=== PATIENT | male | born 1990 | race Caucasian/White ===

== ENCOUNTER 2023-05-26 10:16 | Inpatient (IN) | payer OTHER ==
[2023-05-26] MEDS ORDERED: ACETAMINOPHEN 1000 MG/100 ML BAG IVPB ONE (10:22)
[2023-05-26] MEDS ORDERED: KETOROLAC TROMETHAMINE 15 MG/ML VIAL IVPUSH ONE (10:23)
[2023-05-26 10:45] VITALS: BMI 33.3
[2023-05-26 11:09] LABS: BASO % 0.2 % (0-2.0); EOS % 0.3 % (0-4.5); EPI CELLS 8 /uL (0-25.1); HEMATOCRIT 45.2 % (35.4-49); HEMOGLOBIN 15.2 GM/dL (11.7-16.9); HYALINE CASTS 1 /uL (0-3.1); LYMPH % 13.2 % (8-40); MCHC 33.6 g/dl (32.0-35.9); MEAN CELL VOLUME 83.3 fl (80-96); MEAN PLT VOLUME 8.5 fl (7.5-11.1); MONO % 3.2 % (3.8-10.2); NEUT % 83.1 % (42.8-82.8); PLATELET COUNT 262 10^3/uL (134-434); RBC 5.43 M/mm3 (4.00-5.60); RDW 13.7 % (11.9-15.9); URINE APPEARANCE CLEAR; URINE BACTERIA 27 /uL (0-1359); URINE BILIRUBIN NEGATIVE (NEGATIVE); URINE COLOR YELLOW; URINE GLUCOSE (UA) NEGATIVE (NEGATIVE); URINE KETONE NEGATIVE (NEGATIVE); URINE LEUK ESTERASE TRACE (NEGATIVE); URINE NITRITE NEGATIVE (NEGATIVE); URINE PROTEIN TRACE (NEGATIVE); URINE RBC 1076 /uL (0-23.9); URINE UROBILINOGEN 0.2 mg/dL (0.2-1.0); URINE WBC 74 /uL (0-25.8)
[2023-05-26 11:40] LABS: CHLORIDE 109 mmol/L (98-107); SODIUM 136 mmol/L (136-145)
[2023-05-26 11:43] LABS: CALCIUM 8.8 mg/dL (8.5-10.1); CO2 21 mmol/L (21-32); GLUCOSE,RANDOM 128 mg/dL (74-106)
[2023-05-26 11:44] LABS: BLOOD UREA NITROGEN 14.2 mg/dL (7-18)
[2023-05-26 11:46] LABS: SGPT/ALT 51 U/L (13-61)
[2023-05-26 11:47] LABS: CREATININE 1.1 mg/dL (0.55-1.3); SGOT/AST 51 U/L (15-37)
[2023-05-26 11:48] LABS: BILIRUBIN,TOTAL 0.4 mg/dL (0.2-1); TOT PROT 7.7 g/dl (6.4-8.2)
[2023-05-26 11:49] LABS: ALK PHOS 104 U/L (45-117); ANION GAP 5 MMOL/L (8-16); POTASSIUM 6.8 mmol/L (3.5-5.1)
[2023-05-26 14:56] LABS: POTASSIUM 4.5 mmol/L (3.5-5.1)
[2023-05-26 14:58] LABS: BLOOD UREA NITROGEN 12.7 mg/dL (7-18); CALCIUM 9.1 mg/dL (8.5-10.1)
[2023-05-26 15:02] LABS: CREATININE 0.9 mg/dL (0.55-1.3)
[2023-05-26] MEDS ORDERED: KETOROLAC TROMETHAMINE 15 MG/ML VIAL IVPUSH PRN (18:15)
[2023-05-26] MEDS ORDERED: TAMSULOSIN HCL 0.4 MG CAP PO ONE (18:16)
[2023-05-26] MEDS ORDERED: ACETAMINOPHEN 1000 MG/100 ML BAG IVPB PRN (18:16)
[2023-05-26] MEDS ORDERED: TAMSULOSIN HCL 0.4 MG CAP ONE (18:38)
[2023-05-26] MEDS ORDERED: TRIMETHOBENZAMIDE HCL 200MG/2ML INJ IM PRN (18:42)
[2023-05-26] MEDS: LACTATED RINGERS SOLUTION 1,000 ML/1,000 ML INFUS.BAG IV SCH (18:54)
[2023-05-27] MEDS: LACTATED RINGERS SOLUTION 1,000 ML/1,000 ML INFUS.BAG IV SCH (07:58)
[2023-05-27 10:38] LABS: INR 1.11 (0.83-1.09); PROTHROMBIN TIME (PATIENT) 12.9 SEC (9.7-13.0)
[2023-05-27 10:41] LABS: BASO % 0.4 % (0-2.0); EOS % 1.9 % (0-4.5); HEMATOCRIT 38.4 % (35.4-49); HEMOGLOBIN 13.4 GM/dL (11.7-16.9); MCH 28.4 pg (25.7-33.7); MCHC 34.9 g/dl (32.0-35.9); MEAN CELL VOLUME 81.5 fl (80-96); MEAN PLT VOLUME 8.5 fl (7.5-11.1); NEUT % 47.7 % (42.8-82.8); PLATELET COUNT 225 10^3/uL (134-434); RBC 4.72 M/mm3 (4.00-5.60); RDW 13.7 % (11.9-15.9); WHITE BLOOD COUNT 5.8 K/mm3 (4.0-10.0)
[2023-05-27 10:41] LABS: ACTIVATED PTT 30.4 SECONDS (25.2-36.5)
[2023-05-27 11:28] LABS: ALBUMIN 3.3 g/dl (3.4-5.0); BLOOD UREA NITROGEN 14.7 mg/dL (7-18); CALCIUM 8.6 mg/dL (8.5-10.1); MAGNESIUM 2.1 mg/dL (1.8-2.4)
[2023-05-27 11:30] LABS: POTASSIUM 3.9 mmol/L (3.5-5.1)
[2023-05-27 11:32] LABS: CREATININE 0.8 mg/dL (0.55-1.3); PHOSPHOROUS 3.1 mg/dL (2.5-4.9)
[2023-05-27 11:33] LABS: BILIRUBIN,TOTAL 0.4 mg/dL (0.2-1); TOT PROT 6.2 g/dl (6.4-8.2)
[2023-05-28] MEDS ORDERED: GENTAMICIN SO4 80 MG/2 ML VIAL IVPB ONE (07:38)
[2023-05-28] MEDS ORDERED: MIDAZOLAM HCL 2 MG/2 ML SINGLE DOSE VIAL ONE (07:40)
[2023-05-28] MEDS ORDERED: ACETAMINOPHEN INJECTION 100 ML IVPB ONE (07:40)
[2023-05-28] MEDS ORDERED: FENTANYL CITRATE/PF 50 MCG/ML VIAL ONE (07:40)
[2023-05-28] MEDS ORDERED: ceFAZolin SODIUM 1 GM VIAL IVPB ONE ×2 (07:41→07:50)
[2023-05-28] MEDS ORDERED: PROPOFOL 20 ML ONE (07:45)
[2023-05-28] MEDS ORDERED: IOHEXOL 300 MG/ML INFUS..BTL IV ONE (07:50)
[2023-05-28] MEDS ORDERED: GENTAMICIN SO4 80 MG/2 ML VIAL ONE (07:51)
[2023-05-28] MEDS ORDERED: LACTATED RINGERS SOLUTION 1,000 ML IV SCH (08:30)
[2023-05-28] MEDS ORDERED: TRIMETHOBENZAMIDE HCL 200MG/2ML INJ IM PRN (08:35)
[2023-05-28 11:04] VITALS: RESP 18
[2023-05-28 13:09] LABS: POTASSIUM 3.7 mmol/L (3.5-5.1)
[2023-05-28 13:10] LABS: CALCIUM 8.7 mg/dL (8.5-10.1)
[2023-05-28 13:11] LABS: BLOOD UREA NITROGEN 12.6 mg/dL (7-18); MAGNESIUM 1.7 mg/dL (1.8-2.4)
[2023-05-28 13:14] LABS: CREATININE 0.8 mg/dL (0.55-1.3)
[2023-05-28 14:01] VITALS: BP 146/84; PULSE 59; TEMP 98.2
== END 2023-05-28 15:51 | disposition home or self-care (01) | DRG 465 ==
LOC: JER 10:16 → MERGE 10:16 → UNDOADMOB 18:08 → JERBED 18:08 → INTOOBSV 18:08 → JERBED 18:12 → J6S 20:28 → OBSVTOIN 05-27 11:47
PROVIDERS: ADMIT Internal Medicine; ATTEND Internal Medicine
PROC: 0T778DZ Dilation of Left Ureter with Intraluminal Device, Via Natural or Artificial Opening Endoscopic (ICD-10-PCS; principal; 2023-05-28 07:30)
PROC: BT14ZZZ Fluoroscopy of Kidneys, Ureters and Bladder (ICD-10-PCS; 2023-05-28 07:30)
DX: N13.2 Hydronephrosis with renal and ureteral calculous obstruction (principal); F17.210 Nicotine dependence, cigarettes, uncomplicated; R31.9 Hematuria, unspecified; N50.819 Testicular pain, unspecified; R33.9 Retention of urine, unspecified
CPT/HCPCS: 36415; 74176-TC; 76000-TC-FY; 76870-TC; 80048; 80053; 81003; 83735; 84100; 85025; 85610; 85730; 86850; 86900; 86901; 87086; 93005; 93010; 94760; 99285-25; C1758; C2617; G0378

== ENCOUNTER 2023-06-28 07:00 | Observation (INO) | payer OTHER ==
[2023-06-28 07:12] VITALS: BMI 30.7
[2023-06-28 09:52] LABS: BASO % 0.5 % (0-2.0); EOS % 7.8 % (0-4.5); HEMATOCRIT 39.5 % (35.4-49); HEMOGLOBIN 13.3 GM/dL (11.7-16.9); LYMPH % 32.7 % (8-40); MCH 27.4 pg (25.7-33.7); MCHC 33.8 g/dl (32.0-35.9); MEAN CELL VOLUME 81.3 fl (80-96); MEAN PLT VOLUME 8.3 fl (7.5-11.1); MONO % 10.1 % (3.8-10.2); NEUT % 48.9 % (42.8-82.8); PLATELET COUNT 254 10^3/uL (134-434); RBC 4.86 M/mm3 (4.00-5.60); WHITE BLOOD COUNT 6.6 K/mm3 (4.0-10.0)
[2023-06-28 09:58] LABS: INR 1.06 (0.83-1.09); PROTHROMBIN TIME (PATIENT) 12.3 SEC (9.7-13.0)
[2023-06-28 10:01] LABS: ACTIVATED PTT 32.5 SECONDS (25.2-36.5)
[2023-06-28 10:05] VITALS: RESP 16
[2023-06-28 10:27] LABS: ALBUMIN 3.8 g/dl (3.4-5.0); CALCIUM 8.5 mg/dL (8.5-10.1)
[2023-06-28 10:28] LABS: BLOOD UREA NITROGEN 16.1 mg/dL (7-18)
[2023-06-28 10:30] LABS: CREATININE 0.8 mg/dL (0.55-1.3)
[2023-06-28 10:32] LABS: BILIRUBIN,TOTAL 0.4 mg/dL (0.2-1); TOT PROT 6.8 g/dl (6.4-8.2)
[2023-06-28] MEDS ORDERED: ACETAMINOPHEN 1000 MG/100 ML BAG IVPB PRN (10:32)
[2023-06-28] MEDS ORDERED: FENTANYL CITRATE/PF 50 MCG/ML VIAL ONE ×2 (12:14→12:28)
[2023-06-28] MEDS ORDERED: MIDAZOLAM HCL 2 MG/2 ML SINGLE DOSE VIAL ONE (12:14)
[2023-06-28 15:16] VITALS: BP 131/85; PULSE 65; TEMP 97.5
[2023-06-28] MEDS ORDERED: MELATONIN 1 MG TABLET PO SCH (22:00)
[2023-06-29] MEDS ORDERED: ENOXAPARIN NA (PORCINE) 40 MG/0.4 ML DISP.SYRIN SQ SCH (10:00)
[2023-06-29] MEDS ORDERED: NICOTINE 14 MG/24 HOURS TOPICAL PATCH TD SCH (10:00)
== END 2023-06-28 15:10 | disposition home or self-care (01) ==
LOC: JER 07:00 → JERBED 07:39
PROVIDERS: ADMIT Internal Medicine; ATTEND Internal Medicine
PROC: 0T777DZ Dilation of Left Ureter with Intraluminal Device, Via Natural or Artificial Opening (ICD-10-PCS; 2023-06-28)
PROC: 0TF Urinary System, Fragmentation (ICD-10-PCS; principal; 2023-06-28 15:30)
DX: N20.0 Calculus of kidney (principal); R31.9 Hematuria, unspecified; Z87.442 Personal history of urinary calculi; F17.210 Nicotine dependence, cigarettes, uncomplicated
CPT/HCPCS: 36415; 71046-TC-FY; 80053; 85025; 85610; 85730; 86850; 86900; 86901; 93005; 93010; 99285-25; G0378

== ENCOUNTER 2023-08-10 04:24 | Day surgery (SDC) | payer OTHER ==
[2023-08-04 14:40] VITALS: BMI 34.3
[2023-08-10] MEDS ORDERED: MIDAZOLAM HCL 2 MG/2 ML SINGLE DOSE VIAL ONE ×2 (16:00→16:06)
[2023-08-10 18:36] VITALS: RESP 18; TEMP 97.9
[2023-08-10 18:38] VITALS: BP 120/78; PULSE 60
== END 2023-08-10 18:20 | disposition home or self-care (01) ==
LOC: JASU-SURG 04:24
PROVIDERS: ATTEND Urology
PROC: 0TF7XZZ Fragmentation in Left Ureter, External Approach (ICD-10-PCS; principal; 2023-08-10 14:00)
DX: N20.1 Calculus of ureter (principal)

== ENCOUNTER 2023-11-07 22:53 | Inpatient (IN) | payer OTHER ==
[2023-11-08 00:43] LABS: BASO % 0.6 % (0-2.0); EOS % 2.8 % (0-4.5); HEMATOCRIT 39.9 % (35.4-49); HEMOGLOBIN 13.9 GM/dL (11.7-16.9); LYMPH % 42.7 % (8-40); MCH 27.6 pg (25.7-33.7); MCHC 34.7 g/dl (32.0-35.9); MEAN CELL VOLUME 79.6 fl (80-96); MEAN PLT VOLUME 7.7 fl (7.5-11.1); MONO % 7.2 % (3.8-10.2); NEUT % 46.7 % (42.8-82.8); PLATELET COUNT 253 10^3/uL (134-434); RBC 5.02 M/mm3 (4.00-5.60); WHITE BLOOD COUNT 8.4 K/mm3 (4.0-10.0)
[2023-11-08 00:47] LABS: EPI CELLS 16 /uL (0-25.1); HYALINE CASTS 1 /uL (0-3.1); PH,URINE 6.5 (5.0-8.0); URINE APPEARANCE CLEAR; URINE BACTERIA 45 /uL (0-1359); URINE BILIRUBIN NEGATIVE (NEGATIVE); URINE COLOR YELLOW; URINE GLUCOSE (UA) NEGATIVE (NEGATIVE); URINE KETONE NEGATIVE (NEGATIVE); URINE LEUK ESTERASE 2+ (NEGATIVE); URINE NITRITE NEGATIVE (NEGATIVE); URINE PROTEIN 1+ (NEGATIVE); URINE RBC 1740 /uL (0-23.9); URINE UROBILINOGEN 0.2 mg/dL (0.2-1.0); URINE WBC 256 /uL (0-25.8)
[2023-11-08 00:58] LABS: BLOOD UREA NITROGEN 17.6 mg/dL (7-18); CALCIUM 8.5 mg/dL (8.5-10.1)
[2023-11-08 00:59] LABS: ALBUMIN 3.7 g/dl (3.4-5.0)
[2023-11-08 01:02] LABS: CREATININE 0.8 mg/dL (0.55-1.3)
[2023-11-08 01:03] LABS: BILIRUBIN,TOTAL 0.4 mg/dL (0.2-1); TOT PROT 6.9 g/dl (6.4-8.2)
[2023-11-08 01:17] LABS: INR 1.02 (0.83-1.09); PROTHROMBIN TIME (PATIENT) 11.8 SEC (9.7-13.0)
[2023-11-08 01:20] LABS: ACTIVATED PTT 33.3 SECONDS (25.2-36.5)
[2023-11-08] MEDS ORDERED: CEFTRIAXONE 1 GM/50 ML BAG ONE (01:21)
[2023-11-08 04:40] VITALS: BMI 29.7
[2023-11-08 09:31] LABS: HEMATOCRIT 40.2 % (35.4-49); HEMOGLOBIN 14.1 GM/dL (11.7-16.9); MCH 27.7 pg (25.7-33.7); MEAN CELL VOLUME 79.1 fl (80-96); MEAN PLT VOLUME 8.4 fl (7.5-11.1); PLATELET COUNT 242 10^3/uL (134-434); RBC 5.08 M/mm3 (4.00-5.60); RDW 14.2 % (11.9-15.9); WHITE BLOOD COUNT 6.2 K/mm3 (4.0-10.0)
[2023-11-08 09:53] LABS: POTASSIUM 3.7 mmol/L (3.5-5.1)
[2023-11-08 10:09] LABS: CALCIUM 8.4 mg/dL (8.5-10.1)
[2023-11-08 10:10] LABS: ALBUMIN 3.5 g/dl (3.4-5.0); BLOOD UREA NITROGEN 13.8 mg/dL (7-18); MAGNESIUM 2.1 mg/dL (1.8-2.4)
[2023-11-08 10:12] LABS: URIC ACID 4.8 mg/dL (2.6-7.2)
[2023-11-08 10:13] LABS: BILIRUBIN,TOTAL 0.6 mg/dL (0.2-1); CREATININE 0.6 mg/dL (0.55-1.3); PHOSPHOROUS 3.6 mg/dL (2.5-4.9); TOT PROT 6.4 g/dl (6.4-8.2)
[2023-11-08] MEDS: LACTATED RINGERS SOLUTION 1,000 ML/1,000 ML INFUS.BAG IV SCH (17:03)
[2023-11-09 06:51] LABS: BASO % 0.4 % (0-2.0); EOS % 3.8 % (0-4.5); HEMATOCRIT 39.3 % (35.4-49); HEMOGLOBIN 13.6 GM/dL (11.7-16.9); LYMPH % 45.5 % (8-40); MCH 27.6 pg (25.7-33.7); MCHC 34.7 g/dl (32.0-35.9); MEAN CELL VOLUME 79.6 fl (80-96); MEAN PLT VOLUME 8.1 fl (7.5-11.1); MONO % 9.3 % (3.8-10.2); PLATELET COUNT 232 10^3/uL (134-434); RBC 4.93 M/mm3 (4.00-5.60); RDW 13.9 % (11.9-15.9); WHITE BLOOD COUNT 6.1 K/mm3 (4.0-10.0)
[2023-11-09 07:01] LABS: POTASSIUM 4.1 mmol/L (3.5-5.1)
[2023-11-09 07:02] LABS: CALCIUM 8.3 mg/dL (8.5-10.1)
[2023-11-09 07:03] LABS: BLOOD UREA NITROGEN 18.4 mg/dL (7-18)
[2023-11-09 07:06] LABS: CREATININE 0.8 mg/dL (0.55-1.3)
[2023-11-09] MEDS ORDERED: MIDAZOLAM HCL 2 MG/2 ML SINGLE DOSE VIAL ONE (07:11)
[2023-11-09] MEDS ORDERED: FENTANYL CITRATE/PF 50 MCG/ML VIAL ONE ×2 (07:11→07:25)
[2023-11-09] MEDS ORDERED: SUCCINYLCHOLINE CHLORIDE 200 MG/10 ML SYRINGE ONE (07:14)
[2023-11-09] MEDS ORDERED: PROPOFOL 20 ML ONE ×2 (07:14→07:25)
[2023-11-09] MEDS ORDERED: PROMETHAZINE HCL 25 MG/1 ML VIAL IVPB PRN (08:42)
[2023-11-09] MEDS ORDERED: ONDANSETRON 4 MG/2 ML VIAL IVPUSH PRN (08:42)
[2023-11-09] MEDS ORDERED: LACTATED RINGERS SOLUTION 1,000 ML IV SCH (08:45)
[2023-11-09] MEDS ORDERED: CEFTRIAXONE 1 GM in DEXTROSE 5%-WATER - 50 ML IVPB SCH (10:00)
[2023-11-09 14:39] VITALS: BP 119/61; PULSE 66; RESP 20; TEMP 97.9
== END 2023-11-09 18:02 | disposition home or self-care (01) | DRG 443 ==
LOC: JER 22:53 → JERBED 11-08 01:44 → OBSVTOIN 11-08 03:44 → J7W 11-08 04:24
PROVIDERS: ADMIT Internal Medicine; ATTEND Nurse Practitioner Acute Care
PROC: 0T778DZ Dilation of Left Ureter with Intraluminal Device, Via Natural or Artificial Opening Endoscopic (ICD-10-PCS; principal; 2023-11-09 07:00)
PROC: 0TP98DZ Removal of Intraluminal Device from Ureter, Via Natural or Artificial Opening Endoscopic (ICD-10-PCS; 2023-11-09 07:00)
PROC: 0TC78ZZ Extirpation of Matter from Left Ureter, Via Natural or Artificial Opening Endoscopic (ICD-10-PCS; 2023-11-09 07:00)
PROC: BT1FYZZ Fluoroscopy of Left Kidney, Ureter and Bladder using Other Contrast (ICD-10-PCS; 2023-11-09 07:00)
DX: N13.6 Pyonephrosis (principal); F17.210 Nicotine dependence, cigarettes, uncomplicated; R16.0 Hepatomegaly, not elsewhere classified
CPT/HCPCS: 36415; 76000-TC-FY; 80048; 80053; 81003; 82360; 83735; 83970; 84100; 84550; 85025; 85027; 85610; 85730; 86850; 86900; 86901; 87086; 88300-TC; 93005; 93010; 94760; 99285-25; C2617; G0378

== ENCOUNTER 2023-11-29 00:09 | Inpatient (IN) | payer OTHER ==
[2023-11-29 00:16] VITALS: BMI 32.9
[2023-11-29] MEDS ORDERED: KETOROLAC TROMETHAMINE 15 MG/ML VIAL ONE (00:55)
[2023-11-29] MEDS: SODIUM CHLORIDE 0.9% 500 ML INFUS.BAG IV ONE (00:59)
[2023-11-29] MEDS: KETOROLAC TROMETHAMINE 15 MG/ML VIAL IVPUSH ONE (01:00)
[2023-11-29 01:12] LABS: BASO % 0.3 % (0-2.0); EOS % 2.8 % (0-4.5); HEMATOCRIT 40.4 % (35.4-49); HEMOGLOBIN 13.5 GM/dL (11.7-16.9); LYMPH % 45.7 % (8-40); MCH 27.1 pg (25.7-33.7); MCHC 33.5 g/dl (32.0-35.9); MEAN CELL VOLUME 80.9 fl (80-96); MEAN PLT VOLUME 7.9 fl (7.5-11.1); MONO % 7.5 % (3.8-10.2); NEUT % 43.7 % (42.8-82.8); PLATELET COUNT 273 10^3/uL (134-434); RDW 14.4 % (11.9-15.9); WHITE BLOOD COUNT 7.8 K/mm3 (4.0-10.0)
[2023-11-29 01:19] LABS: INR 1.02 (0.83-1.09); PROTHROMBIN TIME (PATIENT) 11.8 SEC (9.7-13.0)
[2023-11-29 01:35] LABS: ACTIVATED PTT 34.9 SECONDS (25.2-36.5)
[2023-11-29 01:47] LABS: POTASSIUM 3.7 mmol/L (3.5-5.1)
[2023-11-29 01:49] LABS: CALCIUM 9.2 mg/dL (8.5-10.1)
[2023-11-29 01:50] LABS: ALBUMIN 3.9 g/dl (3.4-5.0); BLOOD UREA NITROGEN 21.3 mg/dL (7-18); MAGNESIUM 2.1 mg/dL (1.8-2.4)
[2023-11-29 01:53] LABS: CREATININE 0.8 mg/dL (0.55-1.3)
[2023-11-29 01:54] LABS: BILIRUBIN,TOTAL 0.4 mg/dL (0.2-1); TOT PROT 6.9 g/dl (6.4-8.2)
[2023-11-29 02:53] LABS: EPI CELLS 14 /uL (0-25.1); HYALINE CASTS 1 /uL (0-3.1); PH,URINE 5.5 (5.0-8.0); URINE APPEARANCE CLOUDY; URINE BACTERIA 5 /uL (0-1359); URINE BILIRUBIN NEGATIVE (NEGATIVE); URINE COLOR ORANGE; URINE GLUCOSE (UA) NEGATIVE (NEGATIVE); URINE KETONE TRACE (NEGATIVE); URINE LEUK ESTERASE 1+ (NEGATIVE); URINE NITRITE NEGATIVE (NEGATIVE); URINE PROTEIN 2+ (NEGATIVE); URINE RBC 5479 /uL (0-23.9); URINE WBC 89 /uL (0-25.8)
[2023-11-29 06:29] LABS: BASO % 0.2 % (0-2.0); EOS % 3.4 % (0-4.5); HEMOGLOBIN 13.5 GM/dL (11.7-16.9); MCH 27.2 pg (25.7-33.7); MCHC 33.8 g/dl (32.0-35.9); MEAN CELL VOLUME 80.5 fl (80-96); MEAN PLT VOLUME 8.3 fl (7.5-11.1); MONO % 6.8 % (3.8-10.2); NEUT % 39.6 % (42.8-82.8); PLATELET COUNT 242 10^3/uL (134-434); RBC 4.97 M/mm3 (4.00-5.60); RDW 14.2 % (11.9-15.9); WHITE BLOOD COUNT 6.6 K/mm3 (4.0-10.0)
[2023-11-29 07:29] LABS: POTASSIUM 3.8 mmol/L (3.5-5.1)
[2023-11-29 07:32] LABS: CALCIUM 8.6 mg/dL (8.5-10.1)
[2023-11-29 07:33] LABS: ALBUMIN 3.5 g/dl (3.4-5.0); MAGNESIUM 2.2 mg/dL (1.8-2.4)
[2023-11-29 07:36] LABS: CREATININE 0.6 mg/dL (0.55-1.3); PHOSPHOROUS 4.1 mg/dL (2.5-4.9)
[2023-11-29 07:37] LABS: BILIRUBIN,TOTAL 0.4 mg/dL (0.2-1); TOT PROT 6.1 g/dl (6.4-8.2)
[2023-11-29] MEDS ORDERED: FENTANYL CITRATE/PF 50 MCG/ML VIAL ONE ×2 (08:34→09:04)
[2023-11-29] MEDS ORDERED: ONDANSETRON 4 MG/2 ML VIAL ONE (08:34)
[2023-11-29] MEDS ORDERED: MIDAZOLAM HCL 2 MG/2 ML SINGLE DOSE VIAL ONE (08:34)
[2023-11-29] MEDS ORDERED: PROPOFOL 20 ML ONE (09:02)
[2023-11-29 13:27] VITALS: RESP 18
[2023-11-29 13:31] VITALS: BP 134/71; PULSE 58; TEMP 97.5
== END 2023-11-29 11:50 | disposition home or self-care (01) | DRG 465 ==
LOC: JER 00:09 → JERBED 00:56
PROVIDERS: ADMIT Internal Medicine; ATTEND Internal Medicine
PROC: 0TF78ZZ Fragmentation in Left Ureter, Via Natural or Artificial Opening Endoscopic (ICD-10-PCS; principal; 2023-11-29 08:59)
DX: N13.2 Hydronephrosis with renal and ureteral calculous obstruction (principal); F17.210 Nicotine dependence, cigarettes, uncomplicated
CPT/HCPCS: 36415; 74176-TC; 80053; 81003; 83735; 84100; 85025; 85610; 85730; 86850; 86900; 86901; 93005; 93010; 99285-25